=== PATIENT | female | born 1980 | race African-American/Black ===

== ENCOUNTER 2018-06-23 09:27 | Emergency (ER) | payer OTHER ==
[~2018-06-23] VITALS: Ht 167.6 cm; Wt 94.0 kg
[~2018-06-23 09:27] MED LIST: ATIVAN; DILANTIN; HCTZ
[2018-06-23 09:48] VITALS: BP 137/81
[2018-06-23] MEDS ORDERED: ACETAMINOPHEN 325MG TABLET PO ONE (10:15)
== END 2018-06-23 11:15 | disposition home or self-care (01) ==
LOC: ER 09:53
DX: S90.562A Insect bite (nonvenomous), left ankle, initial encounter (principal); S90.561A Insect bite (nonvenomous), right ankle, initial encounter; L03.116 Cellulitis of left lower limb; L03.115 Cellulitis of right lower limb; W57.XXXA Bitten or stung by nonvenomous insect and other nonvenomous arthropods, initial encounter; Y93.89 Activity, other specified; Y92.098 Other place in other non-institutional residence as the place of occurrence of the external cause; R03.0 Elevated blood-pressure reading, without diagnosis of hypertension
CPT/HCPCS: 99283

== ENCOUNTER 2023-10-01 16:41 | Emergency (ER) | payer OTHER ==
[~2023-10-01] VITALS: Ht 165.1 cm; Wt 107.0 kg
[2023-10-01 16:44] VITALS: O2SAT 99
[2023-10-01] MEDS ORDERED: LEVETIRACETAM 500MG PREMIX 100 ML IV ONE ×2 (17:15)
[2023-10-01] MEDS ORDERED: ACETAMINOPHEN 325MG TABLET PO ONE (17:15)
[2023-10-01 17:40] LABS: BASOPHILS % 0.4 % (0.0-2.0); HEMOGLOBIN. 13.4 g/dL (12.0-16.0); LYMPHOCYTES % 7.4 % (20.0-50.0); MEAN CORPUSCULAR HEMOGLOBIN 31.6 pg (28.0-32.0); MEAN CORPUSCULAR HGB CONC 35.4 g/dL (31.0-37.0); MEAN CORPUSCULAR VOLUME 89.3 fL (81.0-99.0); MEAN PLATELET VOLUME 6.7 fl (7.4-10.4); MONOCYTES % 3.2 % (2.0-8.0); PLATELET 318 x1000/uL (130-400); RED BLOOD CELL COUNT 4.25 mill/uL (4.2-5.4); RED CELL DISTRIBUTION WIDTH 13.3 % (11.6-14.6)
[2023-10-01 17:42] LABS: DIFFERENTIAL COMMENT 1
[2023-10-01 17:54] LABS: ALANINE AMINOTRANSFERASE 16 IU/L (10-49); ALBUMIN 3.3 g/dL (3.2-4.8); ASPARTATE AMINOTRANSFERASE 19 IU/L (<34); BILIRUBIN TOTAL 0.4 mg/dL (0.1-1.0); CARBON DIOXIDE 19 mEq/L (21-32); CHLORIDE 102 mEq/L (98-107); CREATININE 0.9 mg/dL (0.6-1.0); GLUCOSE 361 mg/dL (70-105); HCG SCREEN NEGATIVE; POTASSIUM 4.1 mEq/L (3.5-5.1); PROTEIN TOTAL 6.4 g/dL (6.0-8.3); SODIUM 134 mEq/L (136-145); UREA NITROGEN BLOOD 20 mg/dL (9-23)
[2023-10-01] MEDS ORDERED: LABETALOL HCL VIAL 20 MG/4 ML VIAL IV ONE (21:30)
[2023-10-01] MEDS: INSULIN REGULAR (HUMULIN R) 300UNITS/3ML VIAL SUBCUT ONE ×2 (21:30→21:37)
[2023-10-01] MEDS ORDERED: LABETALOL 5MG/ML SYR 20 MG/4 ML SYRINGE IV NR (21:45)
[2023-10-01 22:30] VITALS: BP 203/121; PULSE 92; RESP 20; TEMP 98
== END 2023-10-01 22:40 | disposition home or self-care (01) ==
LOC: ER 16:41
DX: R56.9 Unspecified convulsions (principal); R73.9 Hyperglycemia, unspecified; I10 Essential (primary) hypertension; Z98.890 Other specified postprocedural states
CPT/HCPCS: 80053; 82010; 82962; 84703; 85025; 36415; 93005; 96365; 96375; 99285; J1953; J1815; J3490; Z7610